=== PATIENT | male | born 1930 | race Caucasian/White ===

== ENCOUNTER → 2020-09-14 | Outpatient (CLI) | payer MEDICARE ==
--- NOTE | 2020-09-14 15:53 | RAD ---
Right index finger 3 views INDICATION: Finger injury COMPARISON: None FINDINGS: There is osseous erosion in the joint space of the distal interphalangeal joint of the second digit w ith articular surface irregularity and tiny fragmentation of bone. This is associated with overlying soft tissue swelling. No radiopaque foreign body or abnormal soft tissue gas is apparent. 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 However, infectious and inflammatory etiologies can yield a similar appearance. Consider an MRI or ta gged white cell scan if infection is suspected. Recommend close clinical follow-up. Electronically signed by: Heath Zee MD (09/14/2020 3:50 PM) [id number]
== END ==
LOC: DXRAD 14:02
PROVIDERS: ATTEND Family Medicine
DX: S69.81XA Other specified injuries of right wrist, hand and finger(s), initial encounter (principal); M89.541 Osteolysis, right hand; X58.XXXA Exposure to other specified factors, initial encounter; Y93.89 Activity, other specified; Y92.89 Other specified places as the place of occurrence of the external cause; Y99.8 Other external cause status
CPT/HCPCS: 73140

== ENCOUNTER → 2021-06-07 | Outpatient (CLI) | payer MEDICARE ==
--- NOTE | 2021-06-07 17:24 | RAD ---
EXAM: XR HAND_RIGHT 3 VIEWS 06/07/2021 11:19 AM CLINICAL INDICATION: Right hand pain COMPARISON: Right finger radiograph 09/14/2020 TECHNIQUE: PA, oblique, and lateral views of the right hand FINDINGS: No acute fracture. The bones are demineralized. There is severe joint space narrowing at t he second DIP joint with central erosions. Moderate to severe joint space narrowing at the fourth DIP joint, moderate joint space narrowing in the remainder of the interphalangeal joints. Moderate joint space narrowing with osteophytes and subchondral cysts or erosions at the third MCP joint. Mild join t space narrowing with small osteophytes at the first CMC joint. There is chronic deformity of the di stal ulna. No soft tissue abnormality. 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 Electronically signed by: Ashlie Mckeon MD (06/07/2021 5:21 PM) [id number]
== END ==
LOC: RAD 11:11
PROVIDERS: ATTEND Family Medicine
DX: M19.041 Primary osteoarthritis, right hand (principal); M25.741 Osteophyte, right hand; M25.841 Other specified joint disorders, right hand; M81.8 Other osteoporosis without current pathological fracture; M21.831 Other specified acquired deformities of right forearm
CPT/HCPCS: 73130